=== PATIENT | male | born 1980 | race Caucasian/White ===

== ENCOUNTER 2019-03-04 08:49 | Emergency (ER) | payer SELFPAY ==
[2019-03-04] MEDS ORDERED: Lidocaine 1% 20 ML MDV INFILT ONE (08:50)
[2019-03-04] MEDS ORDERED: Diphtheria,Pertussis(Acell),Tetanus Vaccine 0.5 ML SDV IM ONE (09:35)
[2019-03-04] MEDS ORDERED: Acetaminophen/HYDROcodone 325-5 MG Tab PO ONE (09:41)
[2019-03-04] MEDS ORDERED: Ketorolac 60 MG/2 ML SDV IM ONE (09:41)
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
--- NOTE | 2019-03-05 09:11 | CR ---
INDICATION: Left leg injury. LEFT TIBIA/FIBULA: Frontal and lateral views of the left tibia and fibula revealed a comminuted oblique fracture through the distal shaft of the fibula with medial offset of the distal fracture fragment of approximately 6 mm. No other significant appearing bone or joint abnormality was identified. MTDD
--- NOTE | 2019-03-05 09:12 | CR ---
INDICATION: Left distal leg injury. LEFT ANKLE: Three views of the left ankle revealed a comminuted fracture of the distal fibular shaft, mostly oblique, with offset medially of the distal fracture fragment of approximately 6 mm. Very minimal overriding of the fracture fragments is suggested. No significant angulation was noted. The ankle mortise appeared to be intact with normal joint space. Overall bone density appeared to be normal. A small posterior calcaneal spur is noted. IMPRESSION: 1. Comminuted fracture distal shaft of thel eft fib. with mild deformity. 2. Heel spur. MTDD
== END 2019-03-04 12:05 | disposition home or self-care (01) ==
LOC: FB.ED 08:49
DX: S82.832A Other fracture of upper and lower end of left fibula, initial encounter for closed fracture (principal); S81.812A Laceration without foreign body, left lower leg, initial encounter; Z23 Encounter for immunization; V64.5XXA Driver of heavy transport vehicle injured in collision with heavy transport vehicle or bus in traffic accident, initial encounter; Y92.410 Unspecified street and highway as the place of occurrence of the external cause
CPT/HCPCS: 12001; 73590; 73610; 90471; 90715; 96372; 99283; A9270; J1885; J2001

== ENCOUNTER → 2019-03-24 | Outpatient (CLI) | payer OTHER, BC ==
--- NOTE | 2019-03-29 11:09 | CR ---
INDICATION: Follow up fractured fibula. LEFT TIBIA/FIBULA: Four views of the left tibia and fibula in frontal and lateral projections were obtained 03/24/19 and compared with 03/10/19. The comminuted distal fibular shaft fracture fragments remain in adequate position and alignment with very early endosteal sclerosis, compatible with interval progress in healing. The ankle mortise and knee joints remain intact. IMPRESSION: Stable fibular fracture fragments with early progress in healing, as seen on the lateral view. KADY
== END ==
LOC: FB.ORTHO 08:41
PROVIDERS: ATTEND Nurse Practitioner Family
DX: S82.832D Other fracture of upper and lower end of left fibula, subsequent encounter for closed fracture with routine healing (principal); X58.XXXD Exposure to other specified factors, subsequent encounter
CPT/HCPCS: 73590-LT